=== PATIENT | female | born 1990 | race African-American/Black ===

== ENCOUNTER 2016-12-13 11:50 | Observation (INO) | payer SELFPAY ==
[2016-12-13 12:05] VITALS: BP 130/87
[2016-12-13] MEDS ORDERED: PREN1TAB80 PO (12:36)
[2016-12-13] MEDS: RINGERS SOLUTION,LACTATED 1,000 ML IV SCH ×2 (12:51→17:30)
[2016-12-13 13:46] LABS: APPEARANCE,URINE CLOUDY (CLEAR); GLUCOSE, URINE (UA) NEGATIVE (NEGATIVE); KETONES,URINE NEGATIVE (NEGATIVE); LEUKOCYTE ESTERASE ,URINE MODERATE (NEGATIVE); OCCULT BLOOD,URINE NEGATIVE (NEGATIVE); PROTEIN,URINE NEGATIVE (NEGATIVE)
[2016-12-13 13:48] LABS: ADD UA MICROSCOPIC YES
[2016-12-13 13:53] LABS: RBC,URINE 0-2 /HPF (0-2); SQUAMOUS EPITHELIAL CELL,UR Few /LPF (None Seen)
[2016-12-13 14:27] VITALS: BP 130/87
[2016-12-13] MEDS ORDERED: CeFAZolin 2 GM/DEXTROSE 50 ML IV SCH (16:00)
[2016-12-13] MEDS ORDERED: NIFEdipine 10 MG CAPSULE PO ONE (16:00)
[2016-12-13] MEDS ORDERED: BETAMETHASONE SOLUSPAN 6 MG/ML 5 ML VIAL IM SCH (16:00)
[2016-12-20 01:17] LABS: URIN CARBOXY-THC GC/MS CONFIRM 45 ng/mL (Cutoff=10)
== END 2016-12-13 21:00 | disposition home or self-care (01) ==
LOC: 4S 11:50
PROVIDERS: ADMIT Obstetrics & Gynecology; ATTEND Obstetrics & Gynecology
DX: O26.893 Other specified pregnancy related conditions, third trimester (principal); R10.30 Lower abdominal pain, unspecified; K08.89 Other specified disorders of teeth and supporting structures; O62.9 Abnormality of forces of labor, unspecified; Z3A.34 34 weeks gestation of pregnancy
CPT/HCPCS: 59025; 76805; 80307 ×8; 80349; 81001; 87086; 96361; 96365; 96372; G0378; J0690; J0702; J7120; 96360

== ENCOUNTER 2016-12-13 20:58 | Emergency (ER) | payer SELFPAY ==
[~2016-12-13] VITALS: Ht 157.5 cm; Wt 75.0 kg
[~2016-12-13 20:58] MED LIST: PREN1TAB80 PO
[2016-12-13] MEDS ORDERED: ACETAMINOPHEN 325 MG TABLET PO ONE (21:45)
[2016-12-13] MEDS ORDERED: AMOX TR/POT CLAV 875 MG/125 MG TABLET PO ONE (21:45)
[2016-12-13 21:58] VITALS: BP 129/78
== END 2016-12-13 22:00 | disposition home or self-care (01) ==
LOC: EMS 21:00
DX: K04.7 Periapical abscess without sinus (principal); F17.210 Nicotine dependence, cigarettes, uncomplicated; F12.90 Cannabis use, unspecified, uncomplicated; Z91.010 Allergy to peanuts
CPT/HCPCS: 99283

== ENCOUNTER 2016-12-14 10:55 | Inpatient (IN) | payer SELFPAY ==
[2016-12-14] MEDS ORDERED: RINGERS SOLUTION,LACTATED 1,000 ML IV PRN (11:10)
[2016-12-14] MEDS ORDERED: OXYTOCIN 30 UNITS/LACT RINGERS 500 ML IV SCH (11:10)
[2016-12-14] MEDS ORDERED: RINGERS SOLUTION,LACTATED 1,000 ML IV SCH (11:10)
[2016-12-14] MEDS ORDERED: METOCLOPRAMIDE HCL 5 MG/ML 2 ML VIAL IVP PRN (11:15)
[2016-12-14] MEDS ORDERED: CITRIC ACID/SODIUM CITRATE 30 ML SOLUTION UDCUP PO PRN (11:15)
[2016-12-14] MEDS ORDERED: OXYTOCIN 20 UNITS in RINGERS SOLUTION,LACTATED 1,000 ML IV SCH (11:41)
[2016-12-14] MEDS ORDERED: LANOLIN 7 GM OINTMENT TP PRN (11:45)
[2016-12-14] MEDS ORDERED: GLYCERIN/WITCH HAZEL LEAF 40 PADS JAR TP PRN (11:45)
[2016-12-14] MEDS ORDERED: SENNA/DOCUSATE SODIUM 187-50 MG TABLET PO PRN (11:45)
[2016-12-14] MEDS ORDERED: BENZOCAINE 20%/MENTHOL 56 GM SPRAY CANISTER TP PRN (11:45)
[2016-12-14] MEDS ORDERED: ACETAMINOPHEN/CODEINE 300-30 MG TABLET PO PRN (11:45)
[2016-12-14] MEDS ORDERED: FentaNYL CITRATE-PF 100 MCG/2 ML VIAL ONE (11:45)
[2016-12-14] MEDS ORDERED: MEASLES/MUMPS/RUBELLA VACCINE, LIVE 0.5 ML/VIAL SQ ONE (11:45)
[2016-12-14] MEDS ORDERED: FentaNYL CITRATE-PF 100 MCG/2 ML VIAL IVP ONE (11:45)
[2016-12-14] MEDS ORDERED: MAGNESIUM HYDROXIDE SUSPENSION 30 ML UDCUP PO PRN (11:45)
[2016-12-14 15:50] LABS: RUBELLA SCREEN (IGG) IMMUNE (IMMUNE)
[2016-12-14] MEDS: IBUPROFEN 600 MG TABLET PO PRN ×2 (16:32→22:50)
[2016-12-14] MEDS ORDERED: OXYGEN THERAPY IH SCH (20:00)
[2016-12-15 06:25] LABS: BASOPHILS # (AUTO) 0.05 K/uL (0.00-0.20); BASOPHILS % (AUTO) 0.3 % (0.0-2.0); EOSINOPHILS # (AUTO) 0.06 K/uL (0.00-0.70); EOSINOPHILS % (AUTO) 0.38 % (1.0-6.0); HEMATOCRIT 33.8 % (36-46); HEMOGLOBIN 11.4 g/dL (12.0-16.0); LYMPHOCYTES # (AUTO) 2.9 K/uL (1.0-4.8); LYMPHOCYTES % (AUTO) 19.7 % (22.0-44.0); MEAN CORPUSCULAR HEMOGLOBIN 32.5 pg (26.0-34.0); MEAN CORPUSCULAR HGB CONC 33.8 G/dL (31.0-37.0); MEAN CORPUSCULAR VOLUME 96 fL (80-100); MONOCYTES # (AUTO) 1.1 K/uL (0.1-1.0); MONOCYTES % (AUTO) 7.5 % (2.0-9.0); NEUTROPHILS # (AUTO) 10.8 K/uL (1.8-7.7); NEUTROPHILS % (AUTO) 72.2 % (40.0-70.0); RED BLOOD CELL COUNT(AUTO) 3.52 MIL/uL (4.00-5.20); RED CELL DISTRIBUTION WIDTH 13.2 % (11.5-14.5); WHITE BLOOD COUNT (AUTO) 14.9 K/uL (4.5-11.0)
[2016-12-15] MEDS: IBUPROFEN 600 MG TABLET PO PRN (11:10)
== END 2016-12-15 14:10 | disposition home or self-care (01) | DRG 775 ==
LOC: 4S 10:55 → OBSVTOIN 10:55
PROVIDERS: ADMIT Obstetrics & Gynecology; ATTEND Obstetrics & Gynecology
PROC: 10E0XZZ Delivery of Products of Conception, External Approach (ICD-10-PCS; principal; 2016-12-14)
DX: O77.0 Labor and delivery complicated by meconium in amniotic fluid (principal); Z3A.38 38 weeks gestation of pregnancy; Z37.0 Single live birth
CPT/HCPCS: 80307; 86592; 86762; 86850; 86900; 86901; 87340; J2590; J3010; J7120